=== PATIENT | female | born 1955 | race Caucasian/White ===

== ENCOUNTER → 2017-03-04 | Outpatient (CLI) | payer BC, OTHER | LOC: MW.CHOBGYN 10:51 | PROVIDERS: ATTEND Nurse Practitioner Women's Health | DX: E03.9 Hypothyroidism, unspecified (principal); E05.40 Thyrotoxicosis factitia without thyrotoxic crisis or storm | CPT/HCPCS: 36415; 84443 ==

== ENCOUNTER → 2017-04-07 | Outpatient (CLI) | payer BC, OTHER | LOC: MW.CHOBGYN 08:24 | PROVIDERS: ATTEND Nurse Practitioner Women's Health | DX: E05.40 Thyrotoxicosis factitia without thyrotoxic crisis or storm (principal); E78.5 Hyperlipidemia, unspecified | CPT/HCPCS: 36415; 80061; 84443 ==